=== PATIENT | female | born 1985 | race Caucasian/White ===

== ENCOUNTER → 2024-05-29 | Outpatient (CLI) | payer BC ==
[~2024-05-29] MED LIST: ALLEGRA 180MG180 MG PO; ANUSOL-HC SUPPO25 MG RC; ASPIRIN 81M81 MG/TA2 PO; BENICAR 20MG TA20 MG PO; BIOTIN10000 MCG PO; CARAFATE 1GM1 G PO; CLARITIN 1010 MG/TAB PO; CLOTRIMAZOLE 1010 ML TP; COLACE 100100 MG/CAP PO; FLORAJEN A20 Billion PO; LEVSIN 0.10.125 MG/T PO; LORTAB 5/500 501 TAB PO; MASON NATURAL1200 MG PO; MOBIC15 MG PO; NAPROSYN500 MG PO; NORCO 325 MG-51 TAB PO; NORVASC 10MG10 MG PO; NORVASC 5MG5 MG/TAB PO; NUVARING VAG RING VG; OMEGA-3 1000 MG1 CAP PO; ONE-A-DAY ESSE1 EACH PO; PRILOSEC 20MG20 MG PO; SINGULAIR 110 MG/TAB PO; TYLENOL 500MG500 MG PO; VALIUM 2MG T2 MG/TAB PO; VALTREX1 GM PO; VYVANSE50 MG PO; WELLBUTRIN SR150 M1 PO; YAZ 28 3 MG-0.01 TAB PO; ZOFRAN 4MG T4 MG/TAB PO; ZOLOFT 100MG100 MG PO; ZOLOFT 50MG50 MG PO
== END ==
LOC: MC.RAD 10:38
DX: Z12.31 Encounter for screening mammogram for malignant neoplasm of breast (principal)